=== PATIENT | female | born 1945 | race Caucasian/White ===

== ENCOUNTER 2017-08-04 09:52 | Inpatient (IN) ==
[2017-07-29 18:22] LABS: Appearance,Urine CLEAR; Bilirubin,Urine NEG (NEG); Color,Urine YELLOW; Glucose,Urine (UA) NEGATIVE (NEG); Leukocyte Esterase,Urine NEG /uL (NEG); Nitrate,Urine NEG (NEG); Protein,Urine NEG (NEG); Urine Blood NEG mg/dL (<0.03); Urobilinogen,Urine NEG (NEG)
[2017-07-29 18:43] LABS: Blood Urea Nitrogen 19 mg/dl (8-23)
[2017-07-29 18:46] LABS: Basophils # (Auto) 0 K/mcL (0.0-0.3); Basophils % (Auto) 0.8 % (0.0-2.0); Eosinophils # (Auto) 0.2 K/mcL (0.0-0.7); Eosinophils % (Auto) 3.3 % (0.0-7.0); Granulocytes % (Auto) 61.4 % (38.0-78.0); Lymphocytes # (Auto) 1.5 K/mcL (1.5-4.8); Lymphocytes % (Auto) 26.8 % (15.5-49.0); Mean Cell Volume 90.4 fL (80.0-100.0); Mean Corpuscular HGB Conc 33.6 g/dL (31.0-36.0); Mean Corpuscular Hemoglobin 30.4 pg (26.0-34.0); Monocytes # (Auto) 0.4 K/mcL (0.1-0.9); Monocytes % (Auto) 7.7 % (1.0-12.0); Platelet Count 183 K/mcL (140-440); RBC 4.87 M/mcL (4.00-5.20); Red Cell Distribution Width 12.8 % (11.5-14.5)
[~2017-08-04 09:52] MED LIST: CELECOXIB 200 MG CAPSULE PO SCH; PREGABALIN 75 MG CAPSULE PO SCH; ceFAZolin 1 GM VIAL IV SCH; oxyCODONE 10 MG TAB.ER.12H PO SCH
[2017-08-04] MEDS ORDERED: MIDAZOLAM 2 MG/2 ML VIAL IV ONE (12:54)
[2017-08-04] MEDS ORDERED: DEXAMETHASONE 10 MG/ML VIAL IV ONE (12:54)
[2017-08-04] MEDS ORDERED: LIDOCAINE HCL/PF 100 MG/5 ML SYRINGE IV ONE (12:54)
[2017-08-04] MEDS ORDERED: KETAMINE 10 MG/ML ML IV ONE (12:54)
[2017-08-04] MEDS ORDERED: TRANEXAMIC ACID 1,000 MG/10 ML VIAL IV ONE ×2 (12:54→14:38)
[2017-08-04] MEDS ORDERED: NEOSTIGMINE 1 MG/ML VIAL IV ONE (12:54)
[2017-08-04] MEDS ORDERED: PHENYTOIN SOD 100 MG/2 ML VIAL IV ONE (12:54)
[2017-08-04] MEDS ORDERED: PROPOFOL 200 MG/20 ML VIAL IV ONE (12:54)
[2017-08-04] MEDS ORDERED: ONDANSETRON 4 MG/2 ML VIAL IV ONE (12:54)
[2017-08-04] MEDS ORDERED: HYDROmorphone 2 MG/ML SYRINGE IV ONE (12:54)
[2017-08-04] MEDS ORDERED: fentaNYL 100 MCG/2 ML VIAL IV ONE (12:54)
[2017-08-04] MEDS ORDERED: BENZOCAINE/MENTHOL 1 LOZENGE PO PRN ×2 (14:36→14:38)
[2017-08-04] MEDS ORDERED: IPRATROPIUM/ALBUTEROL 3 ML AMPUL.NEB NEB PRN (14:36)
[2017-08-04] MEDS ORDERED: ACETAMINOPHEN 1,000 MG/100 ML BOTTLE IV ONE (14:36)
[2017-08-04] MEDS ORDERED: PROMETHAZINE 25 MG/ML VIAL IV PRN (14:36)
[2017-08-04] MEDS ORDERED: LACTATED RINGERS 250 ML IV PRN (14:36)
[2017-08-04] MEDS ORDERED: MEPERIDINE 25 MG/ML SYRINGE IV PRN (14:36)
[2017-08-04] MEDS ORDERED: ONDANSETRON 4 MG/2 ML VIAL IV PRN ×2 (14:36→14:38)
[2017-08-04] MEDS ORDERED: fentaNYL 100 MCG/2 ML VIAL IV PRN (14:36)
[2017-08-04] MEDS ORDERED: NALOXONE HCL 0.4 MG/ML VIAL IV PRN (14:36)
[2017-08-04] MEDS ORDERED: BUPIVACAINE 0.5% 50 ML VIAL IJ ONE (14:36)
[2017-08-04] MEDS ORDERED: FLUMAZENIL 0.1 MG/ML ML IV PRN (14:36)
--- NOTE | 2017-08-04 14:36 | Brief Operative Note ---
Date of procedure: 08/04/17 Pre-op diagnosis: R shoulder severe DJD Post-op diagnosis: same Procedure: R total shoulder arthroplasty with biceps tenodesis Grafts/Implants: Yes (Depuy CAP 40 x 15, anchor peg glenoid) Anesthesia: GLMA Findings: severe arthritis Complications: none Surgeon: Garfield Mclain Hazardous Material Specialist: Hermann Stubbs Estimated blood loss (cc): 100 Specimens Removed/Pathology: none sent Condition: stable Disposition: PACU
[2017-08-04] MEDS ORDERED: HYDROmorphone 2 MG/ML SYRINGE IV PRN (14:38)
[2017-08-04] MEDS ORDERED: BISACODYL 10 MG SUPP.RECT PR PRN (14:38)
[2017-08-04] MEDS ORDERED: KETOROLAC 30 MG/ML VIAL IV PRN (14:38)
[2017-08-04] MEDS ORDERED: HYDROcodone/APAP 10/325MG TABLET PO PRN (14:38)
[2017-08-04] MEDS ORDERED: POLYETHYLENE GLYCOL 3350 17 GM PACKET PO PRN (14:38)
[2017-08-04] MEDS ORDERED: MAGNESIUM HYDROXIDE 30 ML ORAL.SUSP PO PRN (14:38)
[2017-08-04] MEDS ORDERED: FLEETS ADULT ENEMA PR PRN (14:38)
[2017-08-04] MEDS ORDERED: LACTATED RINGERS 1,000 ML IV SCH (14:45)
--- NOTE | 2017-08-04 15:19 | Discharge Summary ---
Providers - Providers Patient information: Note initiated : 08/04/17 at 3:17 pm Service Date, if different from initiated Date: [] Patient: Jo-Ann Kasper 71 y/o F admitted on 08/04/17 for Right Total Shoulder Arthroplasty with Bicep Tenod. Chief Complaint: [] Discharge date: 08/05/17 Hospitalization Hospital course: Pt was admitted for R TSA. She underwent the procedure on the day of admission and was discharged on post-op day 1. She will f/u at [facility] in 2 weeks. She was provided appropriate pain meds and out-patient PT. Discharge diagnosis: R Shoulder osetoarthrosis Exam - Exam Clean and dry: Yes Weight bearing status: none Ortho Discharge - TSA - Patient Instructions Diet: Regular Diet Activity: non weight bearing Total Shoulder Protocol: Leave immobilizer in place except for bathing and ROM. Abduction pillow. Continue to wear sling until seen by physician. Codman Pendulum : These exercises use momentum produced by your body to move your shoulder joint. Bend your knees and shift your weight to your front leg, then back, allowing your arm to swing in the same directions. Using the same technique, alternately shift your weight between your right and left legs, allowing your arm to swing from side to side. These exercises are also performed in counterclockwise and clockwise circular motions. Typically these exercises are performed several times per day, for a set number repetitions or minutes, such as 20 times in a row or 5 minutes at a time. Dressing Care: May shower in 2 days - Follow Up Plan Disposition: Home, Self-Care Prognosis: Good Rehab Potential: Good Overall status at discharge: patient is progressing back to baseline - Orders For Discharge Prescriptions: HYDROcodone/APAP 10/325MG [[place] 10/325Mg] 1 - 2 tab PO Q4HP PRN #90 tab PRN Reason: Pain Level 3-6 traMADol [Ultram] 50 - 100 mg PO Q4-6HP PRN #90 tab PRN Reason: Pain Additional Discharge Orders: Physical Therapy at Discharge - TSA Location: Determined By Patient Pending Studies Resuscitation Status Full Code Diet Regular Diet Start WedAug 04 1441 Cefazolin Sodium (Ancef) 1 gm IV PREOP KAMERON Stop: 08/04/17 17:00 Last Admin: 08/04/17 13:04 Dose: 1 gm Celecoxib (Celebrex) 200 mg PO PREOP KAMERON Stop: 08/04/17 17:00 Last Admin: 08/04/17 11:10 Dose: 200 mg Lactated Ringer's (Lactated Ringers) 1,000 mls @ 20 mls/hr IV .Q24H KAMERON Stop: 08/04/17 16:36 Last Admin: 08/04/17 15:09 Dose: 20 mls/hr Oxycodone HCl (Oxycontin) 10 mg PO PREOP KAMERON Stop: 08/04/17 17:00 Last Admin: 08/04/17 11:10 Dose: 10 mg Pregabalin (Lyrica) 75 mg PO PREOP KAMERON Stop: 08/04/17 17:00 Last Admin: 08/04/17 11:10 Dose: 75 mg
--- NOTE | 2017-08-04 15:47 | XRay Report ---
CLINICAL INFORMATION: Postop total shoulder prostheses COMPARISON: None. FINDINGS: Total shoulder prostheses is anatomically aligned. No osseous abnormality. Soft tissues swelling seen - as expected IMPRESSION: Negative Interpreted and Authenticated by: Anthony Wright 08/04/17
[2017-08-04] MEDS: 0.9 % SODIUM CHLORIDE 1,000 ML IV SCH (19:06)
[2017-08-04] MEDS: NITROFURANTOIN SR 100 MG CAPSULE PO SCH (20:25)
[2017-08-04] MEDS: DOCUSATE SODIUM 100 MG CAPSULE PO SCH (20:25)
[2017-08-04] MEDS ORDERED: TIMOLOL OU SCH (21:00)
[2017-08-04] MEDS ORDERED: SENNOSIDES 1 TABLET PO SCH (21:00)
[2017-08-04] MEDS ORDERED: DORZOLAMIDE OU SCH (21:00)
[2017-08-04] MEDS: 0.9 % SODIUM CHLORIDE 10 ML SYRINGE IV SCH (22:22)
[2017-08-04] MEDS: ceFAZolin 1 GM VIAL IV SCH (22:22)
[2017-08-05] MEDS: 0.9 % SODIUM CHLORIDE 1,000 ML IV SCH ×2 (05:42→10:51)
[2017-08-05] MEDS: ceFAZolin 1 GM VIAL IV SCH (05:43)
[2017-08-05] MEDS: 0.9 % SODIUM CHLORIDE 10 ML SYRINGE IV SCH (06:00)
--- NOTE | 2017-08-05 07:56 | Orthopedic Progress Note ---
Orthopedics - Auxillary Note - Subjective Patient Information: Note initiated : 08/05/17 at 7:55 am Service Date, if different from initiated Date: [] Patient: Jo-Ann Kasper 71 y/o F admitted on 08/04/17 for Right Total Shoulder Arthroplasty with Bicep Tenod. Chief Complaint: no c/o. bandages c/d/i nvi-distal Vital Signs Temp Pulse Pulse Resp BP Pulse Ox 08/05/17 07:29 97.3 F 14 147/86 91 08/05/17 03:27 97.7 F 68 12 129/75 95 08/04/17 23:00 98.4 F 59 L 12 106/56 94 08/04/17 20:00 97.5 F 64 12 140/76 97 08/04/17 19:24 96 08/04/17 17:57 83 147/91 96 08/04/17 17:42 63 123/81 97 08/04/17 17:27 62 127/80 96 08/04/17 17:13 67 145/80 84 L 08/04/17 16:58 66 135/72 96 08/04/17 16:42 59 L 119/76 97 08/04/17 16:28 63 141/67 85 L 08/04/17 15:51 98.0 F 60 10 L 132/64 95 08/04/17 15:46 98.1 F 61 12 127/67 94 08/04/17 15:41 98.1 F 65 12 139/73 94 08/04/17 15:36 98.1 F 66 10 L 140/71 99 08/04/17 15:31 98.1 F 66 10 L 130/72 99 08/04/17 15:26 66 10 L 136/65 99 08/04/17 15:21 67 11 L 119/57 97 08/04/17 15:15 69 11 L 116/55 98 08/04/17 15:11 69 11 L 114/55 98 08/04/17 15:06 68 14 119/59 98 08/04/17 15:01 97.1 F 68 10 L 136/89 100 08/04/17 10:54 96.6 F L 16 147/70 99 Intake and Output 08/04/17 08/05/17 08/05/17 21:59 05:59 13:59 Intake Total 1540 / 1540 175 / 175 Output Total 725 / 725 850 / 850 Balance 815 / 815 -675 / -675 Intake: IV 1300 / 1300 Oral 240 / 240 175 / 175 Output: Void Amount 500 / 500 850 / 850 Straight 500 / 500 425 / 425 Estimated Blood Loss 225 / 225 Other: # Voids 1 Weight 152 lb s/p R TSA-stable mobilize with PT Discharge pain meds switched from Sullivan to Tramadol
--- NOTE | 2017-08-05 08:46 | Operative Note ---
DATE OF OPERATION: 08/04/2017 PREOPERATIVE DIAGNOSIS: Right shoulder severe osteoarthritis. POSTOPERATIVE DIAGNOSIS: Right shoulder severe osteoarthritis. PROCEDURE PERFORMED: 1. Right total shoulder arthroplasty using a DePuy Cap size 40 x 15 humeral component and a size 40 [place] Peg Glenoid. 2. Right biceps tenodesis. SURGEON: Garfield Mclain M.D. MITER GRINDER OPERATOR: Marino Stubbs PA-C. ANESTHESIA: General. DRAINS: None. SPECIMENS: None. COMPLICATIONS: None. BLOOD LOSS: 100 mL. POSTOPERATIVE CONDITION: Stable. INDICATIONS FOR SURGERY: This is a 71-year-old female who has had progressive worsening severe right shoulder pain. Radiographs showed advanced [id number] osteoarthritis. FINDINGS AT SURGERY: As above. Post implantation showed good component position and stability. PROCEDURE IN DETAIL: The patient had been seen preoperatively. Informed consent had been obtained after discussion of risks and benefits of surgery. Risks including, but not limited to, bleeding; infection, possibly requiring implant removal and prolonged IV antibiotics; injury to nerves, blood vessels or other surrounding structures; anesthetic risks; incomplete or no resolution of symptoms; stiffness; pain; instability; possibility of needing further revision surgery. She understood these risks and wished to proceed. Correct operative site was marked in preoperative holding and patient was taken to the operating room and general anesthesia induced. Right shoulder and upper extremity were then carefully prepped and draped in normal sterile fashion, and a time-out was performed verifying patient name, operative site, and plan. Ioban was used to cover all skin surfaces and then a standard deltopectoral incision was made with a scalpel through skin and subcutaneous tissue. Hemostasis was obtained with Bovie cautery. We continued careful blunt dissection down onto the cephalic vein. Irrisept was irrigated and then we carefully bluntly dissected medial to the vein, carefully dissecting this lateral to the deltoid. Blunt finger dissection was then used to develop the subdeltoid space and Akbar deltoid retractor placed. The lateral edge of the conjoint tendon was identified and a blue handle retractor placed underneath. We then identified the biceps tendon exiting from underneath the pec and unroofed this along its course through the rotator interval. We then amputated the biceps off the superior glenoid. A large osteotome was used to perform a lesser tuberosity osteotomy to detach the subscapularis. We then placed a traction stitch around this fragment. We then dislocated the humeral head out of the wound and then started releasing capsule around the inferior neck. A curved osteotome was used to remove osteophytes and then we subluxed the head posteriorly and exposed the glenoid. We removed labrum circumferentially and then released capsule circumferentially as well, carefully staying on bone around the inferior portion. Once we had adequate exposure, we then marked the center axis of our glenoid. We also sized this which sized to a size 40. We placed our guide pin and then reamed with a 40. Her bone was noted to be a very soft and poor quality, so we tried to just remove cartilage. Once we had done this circumferentially, then drilled our central peg. We then placed the peripheral peg drill guide and drilled our three peripheral pegs. We trialled and then opened a 40 [place] Peg Glenoid. DBX bone putty was placed in the flute, and we irrigated the joint with Irrisept while cement mixed. We then pulse lavaged and then suctioned and pressurized cement in the three peripheral holes. We then impacted the glenoid component until it was fully seated. We held pressure until cement had fully hardened. We then redislocated the humeral head out anteriorly and used the drill pin guide to place a pin centrally in the head and then we used the 40 x 15 reamer, and we continued reaming until we had touched all surfaces of the humeral head with the reamer. We then irrigated with Irrisept and after a minute pulse lavaged. We then impacted the definitive implant which fully seated. We then made drill holes, two in the bicipital groove, and then using a #2 FiberWire in a [id number]-[id number] over top of the lesser tuberosity we repaired our subscapularis. We also used a [id number]-[id number] #2 FiberWire in the rotator interval. We also used a free needle and used our traction sutures to perform biceps tenodesis. We amputated the proximal portion of the biceps. A final Irrisept irrigation was done and pulse lavage, and then #1 Vicryl running stitch was used to close the deltopectoral interval. One more Irrisept irrigation, and then after a minute final pulse lavage, and then 2-0 Monocryl for subcutaneous and fernando for skin. Xeroform and sterile dressing were applied. Arm was placed in an immobilizer and patient was awakened, extubated, and transferred to recovery in stable condition. [email or web address] Job ID: [id number] Doc ID: [id number] Garfield Mclain MD
[2017-08-05] MEDS ORDERED: CYCLOSPORINE OU SCH (09:00)
[2017-08-05] MEDS ORDERED: amLODIPine 5 MG TABLET PO SCH (09:00)
[2017-08-05] MEDS ORDERED: LOSARTAN 50 MG TABLET PO SCH (09:00)
[2017-08-05] MEDS ORDERED: FLU VACC QS2017-18 36MOS UP/PF 60 MCG/0.5 ML SYRINGE IM ONE (10:00)
[2017-08-05] MEDS ORDERED: PNEUMOCOCCAL 23-VAL P-SAC VAC 0.5 ML VIAL IM ONE (10:00)
[2017-08-05] MEDS: DOCUSATE SODIUM 100 MG CAPSULE PO SCH (10:19)
[2017-08-05] MEDS: NITROFURANTOIN SR 100 MG CAPSULE PO SCH (10:19)
== END 2017-08-05 12:55 | disposition home or self-care (01) | DRG 483 ==
LOC: MEDSUR 09:52
PROVIDERS: ADMIT Orthopaedic Surgery; ATTEND Orthopaedic Surgery

== ENCOUNTER 2023-01-06 09:55 | Inpatient (IN) ==
[2023-01-01 17:49] LABS: Appearance,Urine CLEAR (Clear); Bilirubin,Urine Negative (Negative); Color,Urine YELLOW; Culture Indicated,Urine No; Glucose,Urine (UA) Negative (Negative); Ketones,Urine 5 mg/dL (Negative); Leukocyte Esterase,Urine Negative /uL (Negative); Nitrate,Urine Negative (Negative); Protein,Urine Negative (Negative); Urine Blood Negative (Negative); Urobilinogen,Urine Negative
[2023-01-01 18:01] LABS: Basophils # (Auto) 0.05 K/mcL (0.00-0.30); Eosinophils # (Auto) 0.13 K/mcL (0.00-0.70); Eosinophils % (Auto) 2.5 % (0.0-7.0); Hematocrit 44.9 % (34.1-44.9); Lymphocytes # (Auto) 1.47 K/mcL (1.50-4.80); Lymphocytes % (Auto) 28.1 % (15.5-49.0); Mean Cell Volume 91.3 fL (80.0-100.0); Mean Corpuscular HGB Conc 33.4 g/dL (31.0-36.0); Mean Platelet Volume 11.3 fL (8.8-12.5); Monocytes # (Auto) 0.46 K/mcL (0.10-0.90); Monocytes % (Auto) 8.8 % (1.0-12.0); Neutrophils % (Auto) 59.4 % (38.0-78.0); Platelet Count 167 K/mcL (140-440); RBC 4.92 M/mcL (3.59-5.38); Red Cell Distribution Width 12.3 % (11.5-14.5); WBC 5.2 K/mcL (4.5-11.0)
[2023-01-01 20:22] LABS: Estimated Average Glucose(eAG) 111 mg/dL; Hemoglobin A1C 5.5 % Hgb (4.0-6.0)
[2023-01-01 22:01] LABS: ALT/SGPT 22 U/L (<40); AST/SGOT 37 U/L (<32); Albumin 4.3 gm/dL (3.2-5.2); Albumin/Globulin Ratio 1.8 (1.0-2.3); Alkaline Phosphatase 94 U/L (39-117); Bilirubin,Total 0.7 mg/dL (0.1-1.0); Blood Urea Nitrogen 26 mg/dL (8-23); Calcium 9.6 mg/dL (8.6-10.4); Carbon Dioxide 21 mmol/L (22-30); Chloride 107 mmol/L (96-108); Globulin 2.4 gm/dL (2.2-3.7); Glomerular Filtration Rate 72; Glucose 97 mg/dL (70-105)
--- NOTE | 2023-01-04 07:21 | EKG ---
[facility] Test Date: 2023-01-01 Pat Name: Jo-Ann Kasper Department: RT Room: Gender: Female Overhead Foreman: : 1945 Requested By: Garfield Dupree Order Number: [id number] Reading MD: Anthony Tony M.D. Measurements Intervals Mobile Rate: 73 P: 3 OK: 172 QRS: -41 QRSD: 96 T: 61 QT: 415 QTc: 458 Interpretive Statements Sinus rhythm Left anterior fascicular block Electronically Signed On 01-04-2023 7:21:12 PDT by Anthony Tony M.D. /[id number]
[~2023-01-06 09:55] MED LIST changes: +0.9 % SODIUM CHLORIDE 9 ML, KETOROLAC 30 MG, ROPIVACAINE HCL/PF 49.5 ML, EPINEPHrine 0.... IJ SCH; -ceFAZolin 1 GM VIAL IV SCH; +ceFAZolin 2 GM in DEXTROSE 5% IN WATER 50 ML IV SCH
[2023-01-06] MEDS ORDERED: TRANEXAMIC ACID 1,000 MG/10 ML VIAL ONE (15:10)
[2023-01-06] MEDS ORDERED: DEXAMETHASONE 10 MG/ML VIAL ONE (15:10)
[2023-01-06] MEDS ORDERED: MAGNESIUM SULFATE 2 GM/50 ML BAG IV ONE (15:10)
[2023-01-06] MEDS ORDERED: ROPIVACAINE HCL/PF 20 ML VIAL IJ ONE (15:10)
[2023-01-06] MEDS ORDERED: PROPOFOL 200 MG/20 ML VIAL IV ONE (15:10)
[2023-01-06] MEDS ORDERED: TRANEXAMIC ACID 1,000 MG/10 ML VIAL IV ONE (15:59)
[2023-01-06] MEDS ORDERED: MAGNESIUM HYDROXIDE 30 ML ORAL.SUSP PO PRN (15:59)
[2023-01-06] MEDS ORDERED: ONDANSETRON 4 MG/2 ML VIAL IV PRN ×2 (15:59→16:19)
[2023-01-06] MEDS ORDERED: BISACODYL 10 MG SUPP.RECT PR PRN (15:59)
[2023-01-06] MEDS ORDERED: BENZOCAINE/MENTHOL 1 LOZENGE PO PRN (15:59)
[2023-01-06] MEDS ORDERED: morphine 4 MG/ML VIAL IV PRN (15:59)
[2023-01-06] MEDS ORDERED: FLEETS ADULT ENEMA PR PRN (15:59)
[2023-01-06] MEDS ORDERED: HYDROcodone/APAP 5/325MG TABLET PO PRN (15:59)
[2023-01-06] MEDS ORDERED: POLYETHYLENE GLYCOL 3350 17 GM PACKET PO PRN (15:59)
--- NOTE | 2023-01-06 15:59 | Brief Operative Note ---
Brief Operative Note Date of procedure: 01/06/23 Pre-op diagnosis: Painful left TKA secondary to instability Post-op diagnosis: same Procedure: Revision left TKA, 1 component (tibial) Grafts/Implants: Yes (12mm CS insert) Anesthesia: MAC and spinal Findings: no significant effusion, no evidence of implant loosening, significant midflexion instability Complications: none Surgeon: Garfield Mclain Solo Truck Driver: Hermann Stubbs Estimated blood loss (cc): 20 Specimens Removed/Pathology: none sent Condition: stable Disposition: PACU
[2023-01-06] MEDS ORDERED: NALOXONE HCL 0.4 MG/ML VIAL IV PRN (16:19)
[2023-01-06] MEDS ORDERED: IPRATROPIUM/ALBUTEROL 3 ML AMPUL.NEB NEB PRN (16:19)
[2023-01-06] MEDS ORDERED: fentaNYL 100 MCG/2 ML VIAL IV PRN (16:19)
--- NOTE | 2023-01-06 16:32 | Discharge Summary ---
Discharge Provider Provider IMPORTANT FOLLOW-UP INFORMATION FOR PCP: Patient information: Note initiated : 01/06/23 at 4:32 pm Service Date, if different from initiated Date: [] Patient: Jo-Ann Kasper 77 y/o F admitted on 01/06/23 for Left Total Knee Arthroplasty Revision . Chief Complaint: [] Date of admission: 01/06/23 09:55 Discharge date: 01/07/23 Primary care physician: Jae Alvarado PA-C COURSE Hospital Course Hospital course: was admitted for a L TKA-revision poly exchange. Pt discharged to home post-op day 1. ASA for DVT prophylaxis. f/u 2 weeks. Discharge diagnosis: L painful TKA Time Spent with Patient Time attestation: Total time spent providing and/or coordinating discharge services: Time spent: Less than 30 minutes Physical Examination Exam Clean and dry: Yes Weight bearing status: as tolerated Discharge Instructions - TKA Patient Instructions Total Knee Protocol: For Total Knee: Start ROM JEREMIAH with stationary bike or rocking chair. Work on gaining full extension of knee. Posterior dislocation precautions provided. Hip abductor strengthening and gait training instructions provided. Apply Cryocuff as instructed. Dressing Care: May shower in 2 days Discharge Plan Patient/Caregiver Discharge Instructions Activity: increase activity as tolerated Diet: Regular Diet Prescriptions: New acetaminophen [Acetaminophen Pain Relief] 500 mg tablet 1,000 mg PO TID Qty: 90 0RF aspirin 81 mg tablet,delayed release (DR/EC) 81 mg PO BID Qty: 30 0RF meloxicam 7.5 mg tablet 7.5 mg PO QDAY Qty: 30 0RF oxycodone 5 mg tablet 5 mg PO Q6H PRN (Reason: pain) Qty: 30 0RF Continued losartan 100 mg tablet 100 mg PO QAM Qty: 90 3RF cholecalciferol (vitamin D3) 50 mcg (2,000 unit) capsule 50 mcg PO QAM ascorbic acid (vitamin C) 1,000 mg tablet 1,000 mg PO QDAY latanoprost 0.005 % drops 1 drp ophthalmic (eye) QPM atorvastatin 20 mg tablet 20 mg PO QDAY memantine 10 mg tablet 10 mg PO BID Qty: 180 1RF amlodipine 5 mg tablet 5 mg PO QAM Qty: 90 3RF Hold Instructions: Doctor's Order cyclosporine [Restasis] 0.05 % dropperette 1 drp OPHTHALMIC (EYE) QAM zinc 50 mg Capsule 50 mg PO QAM Co Q-10 300 mg Capsule 300 mg PO QAM vitamin B complex Tablet 1 tab PO QDAY magnesium oxide 400 mg magnesium Tablet 400 mg PO QDAY Discontinued aspirin [Adult Low Dose Aspirin] 81 mg tablet,delayed release (DR/EC) 81 mg PO QDAY Other Ambulatory Orders: Physical Therapy at Discharge - TKA (Routine) Location: None Selected Ordered By: Hermann Malik (ONCE) Location: None Selected Ordered By: Hermann Stubbs Follow Up Plan Follow up with: Hermann Stubbs PA-C [Physician Flotation Operator] - Patient Disposition: Home, Self-Care Rehab Potential: Good Overall status at discharge: patient is progressing back to baseline Discharge Orders: Discharge Order (Routine); Ordered 01/07/23 Ordered By: Hermann Stubbs Pending Pending Pending: Resuscitation Status Resuscitate (Full Code) Diet Regular Diet Start WedJan 06 7979
--- NOTE | 2023-01-06 17:10 | XRay Report ---
INDICATION: Post-op total knee TECHNIQUE: AP, crosstable lateral, patellar views of the left knee COMPARISON: Previous examination dated 09/18/2022 FINDINGS: Left total knee arthroplasty. This apparently represents a revision of previous arthroplasty. Alignment is anatomic. There is postsurgical soft tissue and intra-articular gas. IMPRESSION: Left total knee arthroplasty Interpreted and Authenticated by: Anthony Kirk 01/06/23
[2023-01-06] MEDS: 0.9 % SODIUM CHLORIDE 1,000 ML IV SCH (18:03)
[2023-01-06] MEDS: KETOROLAC 15 MG/ML VIAL IV SCH ×2 (18:04→23:30)
[2023-01-06] MEDS: ASPIRIN 81 MG TAB.CHEW PO SCH (20:42)
[2023-01-06] MEDS: MEMANTINE 10 MG TABLET PO SCH (20:42)
[2023-01-06] MEDS: DOCUSATE SODIUM 100 MG CAPSULE PO SCH (20:42)
[2023-01-06] MEDS: 0.9 % SODIUM CHLORIDE 10 ML SYRINGE IV SCH (20:47)
[2023-01-06] MEDS ORDERED: LATANOPROST OPHTH DROPS 2.5ML BOTTLE OU SCH (21:00)
[2023-01-06] MEDS ORDERED: SENNOSIDES 1 TABLET PO SCH (21:00)
[2023-01-06] MEDS ORDERED: ceFAZolin 1 GM VIAL IV SCH (23:00)
[2023-01-07] MEDS: 0.9 % SODIUM CHLORIDE 1,000 ML IV SCH (01:59)
[2023-01-07] MEDS: KETOROLAC 15 MG/ML VIAL IV SCH (05:58)
[2023-01-07] MEDS: 0.9 % SODIUM CHLORIDE 10 ML SYRINGE IV SCH (05:59)
[2023-01-07] MEDS ORDERED: ZINC SULFATE 50 MG CAPSULE PO SCH (09:00)
[2023-01-07] MEDS ORDERED: Cyclosporine [Restasis] 0.05 % dropperette OP SCH (09:00)
[2023-01-07] MEDS ORDERED: COENZYME Q10 300 MG PO SCH (09:00)
[2023-01-07] MEDS ORDERED: amLODIPine 5 MG TABLET PO SCH (09:00)
[2023-01-07] MEDS ORDERED: ASCORBIC ACID 500 MG TABLET PO SCH (09:00)
[2023-01-07] MEDS ORDERED: VITAMIN B COMPLEX 1 CAPSULE PO SCH (09:00)
[2023-01-07] MEDS ORDERED: MAGNESIUM OXIDE 400 MG TABLET PO SCH (09:00)
[2023-01-07] MEDS ORDERED: LOSARTAN 50 MG TABLET PO SCH (09:00)
[2023-01-07] MEDS ORDERED: VITAMIN D3 25 MCG TABLET PO SCH (09:00)
[2023-01-07] MEDS ORDERED: ATORVASTATIN 20 MG TABLET PO SCH (09:00)
--- NOTE | 2023-01-07 09:06 | Operative Note ---
DATE OF OPERATION: 01/06/2023 DATE OF PROCEDURE: 01/06/2023 PREOPERATIVE DIAGNOSIS: Painful left total knee arthroplasty due to instability. POSTOPERATIVE DIAGNOSIS: Painful left total knee arthroplasty due to instability. PROCEDURE PERFORMED: Revision of left total knee arthroplasty, one component. SURGEON: Garfield Mclain M.D. ARMATURE WINDER HELPER REPAIR: Hermann Stubbs PA-C. This providers expertise and technical skill were required throughout the case. The PA assisted with preoperative coordination, intraoperative retraction, wound closure, and dressing and splint application, as well as postoperative documentation and care coordination. ANESTHESIA: Spinal plus monitored anesthesia care. DRAINS: None. SPECIMENS: Culture and sensitivity of joint fluid x2 as well as removed tibial insert, which was discarded. ESTIMATED BLOOD LOSS: Less than 30 mL. COMPLICATIONS: None. POSTOPERATIVE CONDITION: Stable. INDICATIONS FOR SURGERY: This is a 77-year-old female who approximately 2 years ago had undergone a total knee arthroplasty by ut. She has developed increasing pain over time. An infection workup was negative. Radiographs showed a well-positioned total knee arthroplasty with no radiographic evidence of loosening. Clinically, however, she had significant laxity, particularly in mid flexion. FINDINGS AT SURGERY: Minimal joint effusion. No evidence of infection with no evidence of implant loosening. Post implantation showed significant improvement in joint stability. PROCEDURE IN DETAIL: The patient and her had been seen preoperatively. She did have some mild dementia. Informed consent had been obtained after discussion of risks and benefits of surgery. Risks including, but not limited to, bleeding; infection, possibly requiring implant removal and prolonged IV antibiotics; injury to nerves, blood vessels, other surrounding structures, anesthetic risks; incomplete or no resolution of symptoms; possible worsening of symptoms, DVT and pulmonary embolus risks; and the possibility of needing further revision surgery. They understood and wished to proceed. Correct operative site was marked and the patient received spinal anesthesia. She was then taken to the operating room and monitored anesthesia sedation was given. The left lower extremity was carefully prepped and draped in normal sterile fashion. A timeout was performed verifying patient name, operative site, and plan. Ioban was used to cover the skin surface and then an Esmarch was used to exsanguinate the extremity, and tourniquet was inflated to 300 mmHg. Her previous scar was used with a scalpel through skin and subcutaneous tissue. Hemostasis obtained with Bovie cautery. We identified her previous FiberWire sutures around the superior medial patella and these were removed with a rongeur and scalpel. We then irrigated with IrriSept and then a medial parapatellar arthrotomy made. There was really no significant joint effusion at all. However, we did go ahead and culture this x2. A subperiosteal exposure was done of the anterior medial tibia and then scar tissue was removed from the retropatellar tendon. We then dislocated the polyethylene insert with an osteotome and removed this as well as the wire. We then inspected the implant surfaces and gave these a tap with an impactor and there was no evidence of loosening of the femoral or tibial component, or the patellar component. I then trialed a 12 insert. This seemed to be significantly more snug as we had removed a 10. For maximum stability, I chose to open a 12 CS insert. We injected pain cocktail in the posterior capsule and pericapsular tissues and then irrigated IrriSept in the joint, after a minute pulse lavaged with saline, and then I irrigated some IrriSept on the tray and then the 12 mm CS insert was impacted. We then placed the knee in extension and filled the joint with IrriSept, after a minute pulse lavaged with saline, and the knee was placed in about 45 degrees of flexion, #2 FiberWire [id number] were used around the superior quadrant of the patella at a single [id number] at the inferior quadrant and then two running Stratafix sutures were used to close the patellar tendon and quad tendon with down-and-up double suture. At this point. IrriSept was used. We irrigated again, after a minute pulse lavaged with saline, and then 2-0 Monocryl was used for subcutaneous closure and fernando for skin. A silver dressing was applied. Tourniquet was released. The patient was awakened, extubated, and transferred to recovery in stable condition. [email or web address] Job ID: [id number] Doc ID: [id number] Garfield Mclain MD
[2023-01-07] MEDS: ASPIRIN 81 MG TAB.CHEW PO SCH (09:47)
[2023-01-07] MEDS: DOCUSATE SODIUM 100 MG CAPSULE PO SCH (09:47)
[2023-01-07] MEDS: MEMANTINE 10 MG TABLET PO SCH (09:48)
[2023-01-07] MEDS ORDERED: ceFAZolin 2 GM in DEXTROSE 5% IN WATER 50 ML IV ONE (10:04)
[2023-01-07] MEDS: ceFAZolin 1 GM VIAL IV ONE ×2 (10:17→10:37)
== END 2023-01-07 11:30 | disposition home or self-care (01) | DRG 489 ==
LOC: MEDSUR 09:55
PROVIDERS: ADMIT Orthopaedic Surgery; ATTEND Physician Assistant Surgical